=== PATIENT | male | born 1990 | race Caucasian/White ===

== ENCOUNTER → 2019-01-18 12:10 | Outpatient (CLI) | payer SELFPAY ==
[2019-01-18 12:36] VITALS: BP 129/72; PULSE 73; RESP 14; TEMP 36.8; O2SAT 100; BMI 23.2
--- NOTE | 2019-01-18 13:01 | WMO.HTC_ITS ---
Problem List (1) Hemophilia B Status: Chronic Subjective Date of Service:: 01/18/19 Chief Complaint: F/u for Hemophilia B. 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 He treated himself 2 times because of neck/shoulder pain and Left knee pain. No dental problems. Health History: Past Medical History (Last Reviewed 01/18/19 @ 12:36 by Jasmin Jj) Hemophilia B (Acute) Lazy eye of right side (Acute) Family History (Last Reviewed 01/18/19 @ 12:36 by Jasmin Jj) Brother Bleeding disorder Social History Social History: No changes Smoking Status Light Smoker (<10/day) Allergies/Adverse Reactions: Allergy/AdvReac Type Severity Reaction Status Date / Time aspirin AdvReac Severe Other Verified 01/18/19 12:36 Risk Factors Social History Social History: No changes Smoking Status Light Smoker (<10/day) Tobacco Risk Data: Tobacco Risk Smoking Status Light Smoker (<10/day) Type of tobacco: Smokeless tobacco usage: Items/Day: Year started: Years used: Counseled to quit/cut down: Reason for no counseling performed: Reason for no pharmacotherapy: Tobacco use comments: Passive smoke exposure: Substance Risk Drug use: No Caffeine use [drinks/day]: 2 Alcohol use: No Type of alcohol: Drinks per day: Has patient felt the need to cut down: Has the patient been annoyed by complaints: Has the patient felt guilty about drinking: Has the patient needed an eye vibration engineer in the mornings: Comments: RARE Review of Systems Constitutional:: Denies: Fever, Sweats, Weight loss, Appetite change, Chills Cardiovascular:: Denies: Chest pain, Palpitations, Dyspnea on exertion, Orthopnea, PND, Shortness of breath Respiratory: Denies: Cough, Hemoptysis, Shortness of Breath, Wheezing Gastrointestinal:: Denies: Abdominal pain, Nausea, Vomiting, Diarrhea, Constipation, Hematochezia Genitourinary: Denies: Dysuria, Hematuria, 15, Flank pain Musculoskeletal:: Denies: Back pain, Myalgia, Arthralgia Skin: Denies: Rash, Skin Changes, Wounds Neurological:: Denies: Headache, Dizziness, Visual changes, Tinnitus, Hearing loss Psychiatric: Denies: Anxiety, Depression, Homicidal Ideations, Suicidal Ideations Vital Signs Height 6 ft 2 in Weight: 82.1 kg Weight in Pounds 181.0 lbs Pulse Ox 100 Temperature 98.2 F Pulse Rate 73 Respiratory Rate 14 Blood Pressure 129/72 Blood Pressure Position Sitting - Physical Exam General: Alert, Oriented x3, No apparent distress HEENT: Atraumatic, PERRLA, EOMI, Normocephalic Oropharynx:: Dry mucosa Neck:: Supple, Trachea midline. Negative for: JVD, bilateral Cardiac:: Regular rate, Regular rhythm, Normal S1, Normal S2. Negative for: Murmur Lungs: Clear to auscultation, Excusion symmetrical. Negative for: Rhonchi, Wheezes Abdomen:: Bowel sounds x 4, Soft, Non-tender, Non-distended. Negative for: Hepatosplenomegaly Extremities:: Negative for: Cyanosis, Edema Neurological: Neuro grossly intact Skin:: Negative for: Lesions, Rash, Petechiae, Ecchymosis Psychiatric:: Appropriate affect, Euthymic Lymphatics:: Negative for: Cervical lymphadenopathy, Supraclavicular lymphadenopathy, Axillary lymphadenopathy Assessment and Plan Hemophilia B, clinically stable. Plan is to continue expectant management and Factor replacement as needed. RTC 1 yr. Primary Care Provider: Christopher Paul DO Referring Provider: Lino Murdock MD
== END ==
PROVIDERS: Family Provider Family Medicine; PCP Family Medicine; Referring Provider Internal Medicine Hematology & Oncology; Visit Provider Internal Medicine Medical Oncology
DX: D67 Hereditary factor IX deficiency (principal)